=== PATIENT | female | born 1995 | race Caucasian/White ===

== ENCOUNTER 2017-07-19 10:33 | Emergency (ER) | payer BC ==
[2017-07-19 13:14] VITALS: BP 122/69
--- NOTE | 2017-07-19 13:26 | UC ---
Throat Pain/Nasal Rigoberto HPI - HPI Summary HPI Summary: Pt presents accompanied by mother with complaints of swollen tonsils, pain in her throat, and difficulty eating due to swelling. Her symptoms started 2 days ago and have rapidly progressed. Yesterday she tells me that she had a fever of 103F, took ibuprofen and fever was well controlled. She is breathing without difficulty currently. Denies chest pain, abdominal pain, n/v/d/c. - History of Current Complaint Chief Complaint: UCRespiratory Stated Complaint: FEVER, DRAINNING TONSILS Time Seen by Provider: 07/19/17 13:16 Hx Obtained From: Patient Hx Last Menstrual Period: iud Onset/Duration: Sudden Onset Severity: Severe Pain Intensity: 8 Pain Scale Used: 0-10 Numeric - Allergies/Home Medications Allergies/Adverse Reactions: Allergies Allergy/AdvReac Type Severity Reaction Status Date / Time Penicillins [PCN] Allergy Intermediate Nausea And Verified 07/19/17 13:14 Vomiting Prochlorperazine Allergy Altered Verified 07/19/17 13:14 [From Compazine] Mental Status Home Medications: Home Medications Ferrous Sulfate [Iron Slow Release] 143 mg PO 07/19/17 [History] Montelukast Sodium TAB* [Singulair TAB*] 10 mg PO DAILY 07/19/17 [History Confirmed 07/19/17] Omeprazole 40 mg PO 07/19/17 [History] Sertraline HCl [Zoloft] 50 mg PO 07/19/17 [History] PMH/Surg Hx/FS Hx/Imm Hx Previously Healthy: Yes Respiratory History: Asthma GI/ History: Gastroesophageal Reflux - Surgical History Surgical History: Yes Surgery Procedure, Year, and Place: bilat faciotomy to legs - Social History Occupation: Student Lives: Dormitory/Roommates Alcohol Use: Occasionally Substance Use Type: None Smoking Status (MU): Never Smoked Tobacco Review of Systems Constitutional: Fever Skin: Negative Eyes: Negative ENT: Sore Throat, Other - Swollen tonsils Respiratory: Negative Cardiovascular: Negative Gastrointestinal: Negative Psychological: Negative All Other Systems Reviewed And Are Negative: Yes Physical Exam Triage Information Reviewed: Yes Appearance: Well-Appearing, No Pain Distress, Well-Nourished Vital Signs: Initial Vital Signs Temp 99.0 F 07/19/17 13:09 Pulse 91 07/19/17 13:09 Resp 18 01/28/18 13:09 BP 122/69 07/19/17 13:09 Pulse Ox 100 07/19/17 13:09 Vital Signs Reviewed: Yes Eyes: Positive: Conjunctiva Clear. Negative: Conjunctiva Inflamed, Discharge ENT: Positive: Pharyngeal erythema, TMs normal, Tonsillar swelling - 3+, Tonsillar exudate, Other - Uvula deviated to the left from right tonsil. Negative: Nasal congestion, Nasal drainage, TM bulging, TM dull, TM red, Hoarse voice, Sinus tenderness Neck: Positive: Supple, Other: - TTP right tonsillar with ~1.0cm fluctuant abscess. Respiratory: Positive: Chest non-tender, Lungs clear, Normal breath sounds, No respiratory distress, No accessory muscle use Cardiovascular: Positive: RRR, No Murmur, Pulses Normal Neurological: Positive: Alert Psychological: Positive: Age Appropriate Behavior Skin: Negative: rashes, significant lesion(s) Throat Pain/Nasal Course/Dx - Course Course Of Treatment: 4mg Dexamethasone given in clinic today. Advised to seek further evaluation in the ED for potential IV antibiotics and ENT drainage. Mom will drive her by private car. - Differential Dx/Diagnosis Provider Diagnoses: Peritonsillar abscess right Discharge - Discharge Plan Condition: Stable Disposition: HOME Patient Education Materials: Peritonsillar Abscess (DC) Referrals: Mary Bajwa MD [Primary Care Provider] - Additional Instructions: Please go directly to the [facility] Emergency Room for further evaluation and treatment of your peritonsillar abscess. You were given 4mg of Dexamethasone (steroid) at your visit today.
[2017-07-19] MEDS ORDERED: Dexamethasone TAB* 4 MG PO ONE (14:00)
== END 2017-07-19 14:20 | disposition home or self-care (01) ==
LOC: UCEAST 10:33
DX: J36 Peritonsillar abscess (principal); Z88.0 Allergy status to penicillin; J45.909 Unspecified asthma, uncomplicated; K21.9 Gastro-esophageal reflux disease without esophagitis
CPT/HCPCS: 87651; 99212; G0463; J8540

== ENCOUNTER 2017-07-19 14:42 | Emergency (ER) | payer BC ==
[2017-07-19] MEDS ORDERED: Clindamycin 600 MG IVPREMIX(* 600 MG/50 ML SDV IV ONE (16:27)
[2017-07-19] MEDS ORDERED: D5NS 0.9% 1000 ML BAG* 1,000 ML IV.FLUID IV ONE (16:27)
[2017-07-19] MEDS ORDERED: Dexamethasone IV* 4 MG/ML 1 ML (4 MG) IV SLOW PU ONE (16:27)
--- NOTE | 2017-07-19 16:39 | ED ---
Throat Pain/Nasal Congestion - HPI Summary HPI Summary: Patient presents to the ED with mother from urgent care. Patient states she was seen here for a peritonsillar abscess. She has been having discomfort in the bilateral tonsils for 2 days. Strep did obtain an negative at urgent care. She was given 4 mg dexamethasone. She denies any sick contacts or history of strep throat. She has a history of tonsil stones and has had that recently. She returned from a trip to [facility] 2 days ago and began to feel ill at that time. She denies any fevers, sweats, chills. Pain is discretely located over bilateral cervical lymph nodes and posterior pharynx. Moderate amount of swelling to the right cervical lymph node, mild amount of swelling to the left cervical lymph node. She was eating and drinking okay although endorses odynophagia. Denies dysphagia. Denies any breathing difficulties or airway compromise. Denies any shortness of breath, or chest pain. Denies any recent illness or bacterial infection. She denies any hoarseness or drooling. She is tolerating secretions well. Speaking okay. She is opening and closing her mouth without difficulty - History of Current Complaint Chief Complaint: EDThroatPain Time Seen by Provider: 07/19/17 15:35 Hx Obtained From: Patient Onset/Duration: Gradual Onset Severity: Moderate Associated Signs And Symptoms: Positive: Dysphagia. Negative: Drooling, Wheezing, Hoarseness - Epiglottits Risk Factors Epiglottis Risk Factors: Negative - Allergies/Home Medications Allergies/Adverse Reactions: Allergies Allergy/AdvReac Type Severity Reaction Status Date / Time Penicillins [PCN] Allergy Intermediate Nausea And Verified 07/19/17 13:14 Vomiting Prochlorperazine Allergy Altered Verified 07/19/17 13:14 [From Compazine] Mental Status PMH/Surg Hx/FS Hx/Imm Hx Previously Healthy: Yes - Surgical History Surgery Procedure, Year, and Place: bilat faciotomy to legs - Immunization History Date of Influenza Vaccine: 04/2017 Immunizations Up to Date: Yes Infectious Disease History: No Infectious Disease History: Denies: Traveled Outside the [place] in Last 30 Days - Social History Occupation: Unemployed Lives: With Family Alcohol Use: Occasionally Hx Substance Use: No Substance Use Type: Reports: None Hx Tobacco Use: No Smoking Status (MU): Never Smoked Tobacco Review of Systems Constitutional: Negative Negative: Fever, Chills, Fatigue Eyes: Negative Positive: Sore Throat - tonsillar swelling Cardiovascular: Negative Respiratory: Negative Genitourinary: Negative Positive: no symptoms reported, see HPI Neurological: Negative Psychological: Normal All Other Systems Reviewed And Are Negative: Yes Physical Exam Triage Information Reviewed: Yes Vital Signs On Initial Exam: Initial Vitals Temp Pulse Resp BP Pulse Ox 99.3 F 100 16 115/57 98 07/19/17 14:55 07/19/17 14:55 07/19/17 14:55 07/19/17 14:55 07/19/17 14:55 Vital Signs Reviewed: Yes Appearance: Positive: Well-Appearing, Well-Nourished Skin: Positive: Warm, Skin Color Reflects Adequate Perfusion Head/Face: Positive: Normal Head/Face Inspection Eyes: Positive: EOMI, TESHA, Conjunctiva Clear ENT: Positive: Hearing grossly normal, Pharyngeal erythema, TMs normal, Tonsillar swelling, Tonsillar exudate, Uvula midline. Negative: Pharynx normal , Nasal congestion, Nasal drainage, Trismus, Muffled voice, Hoarse voice, Dental tenderness, Sinus tenderness Musculoskeletal: Positive: Normal, Strength/ROM Intact Neurological: Positive: Speech Normal Psychiatric: Positive: Affect/Mood Appropriate Diagnostics - Vital Signs Vital Signs Temp Pulse Resp BP Pulse Ox 07/19/17 16:06 99.3 F 109 22 120/64 99 07/19/17 14:55 99.3 F 100 16 115/57 98 - Laboratory Result Diagrams: 07/19/17 16:47 07/19/17 16:47 Lab Statement: Any lab studies that have been ordered have been reviewed, and results considered in the medical decision making process. EENT Course/Dx - Course Course Of Treatment: During the course of treatment, the patient is evaluated for bilateral tonsillar swelling with exudate and cervical lymphadenopathy. She was sent here to rule out a peritonsillar abscess. The tonsillitis is bilateral with exudate and uvula is midline. Peritonsillar abscess not seen. Discussed bacterial infection likely due to a tonsillolith. Patient will be given clindamycin IV 600, Decadron 8 mg in D5 normal saline. Patient is encouraged Chloraseptic spray and Cepacol tabs for discomfort. She is encouraged Tylenol 650 mg 3 times daily and ibuprofen 600 mg 3 times daily intermittently for pain. She is given follow-up with Dr. Granados. She is given prednisone and clindamycin for tonsillitis with infection most likely from a tonsillolith. She voices no concerns at this time and is okay for discharge. - Differential Diagnoses Differential Diagnoses: Other - Tonsillitis, peritonsillar abscess, tonsillolith - Diagnoses Provider Diagnoses: Tonsillitis Discharge - Discharge Plan Condition: Stable Disposition: HOME Prescriptions: Clindamycin Cap(NF) [Clindamycin Cap 300 mg Cap(NF)] 300 mg PO Q6H #28 cap predniSONE TAB* [Deltasone TAB*] 50 mg PO DAILY #5 tab MDD 1 Patient Education Materials: Tonsillitis (ED) Referrals: Mary Bajwa MD [Primary Care Provider] - Julius Granados MD [Medical Doctor] - Additional Instructions: Prednisone once daily in the morning 5 days Clindamycin 4 times daily 7 days I have given you a referral to ENT If you develop fever, sweats, chills despite the Tylenol 650 mg 3 times daily, return to the ED He should begin to feel better by tomorrow afternoon Complete the antibiotics even if he began to feel better I believe you have a tonsillitis with infection, which should clear up with antibiotics This does not appear to need drainage at this time However, if the tonsils become more enlarged, you develop any difficulty swallowing or breathing return to the ED immediately
[2017-07-19 16:54] LABS: ABS Basophils 0 10^3/ul (0-0.2); ABS Eosinophils 0 10^3/ul (0-0.6); ABS Lymphocytes 0.7 10^3/ul (1.0-4.8); ABS Monocytes 0.4 10^3/ul (0-0.8); ABS Neutrophils 9.1 10^3/ul (1.5-7.7); ABS Nucleated RBC 0 10^3/ul; Eosinophil % 0.1 % (0-6); Hematocrit 34 % (35-47); Hemoglobin 11.4 g/dl (12.0-16.0); Mean Corpuscular HGB Conc 34 g/dl (31-36); Mean Corpuscular Hemoglobin 28 pg (27-31); Mean Corpuscular Volume 84 fL (80-97); Mean Platelet Volume 8 um3 (7.4-10.4); Nucleated Red Blood Cells % 0; Platelet Count 229 10^3/ul (150-450); Red Blood Count 4.05 10^6/ul (4.0-5.4); Red Cell Distribution Width 14 % (10.5-15); White Blood Count 10.3 10^3/ul (3.5-10.8)
[2017-07-19 17:11] LABS: EGFR Non-African American 122.6 (>60)
[2017-07-19 18:44] VITALS: BP 113/60
--- NOTE | 2017-07-22 08:50 | PN ---
Progress Note - Progress Note Date of Service: 07/19/17 Note: throat culture results show 2+ normal lori and no other growth no further action required at this time
== END 2017-07-19 18:42 | disposition home or self-care (01) ==
LOC: ED 14:42
DX: J03.90 Acute tonsillitis, unspecified (principal); Z88.0 Allergy status to penicillin
CPT/HCPCS: 36415; 80053; 83605; 83690; 85025; 86140; 86308; 86664; 86665; 87070; 87077; 96374; 96375; 99282; J1100

== ENCOUNTER 2018-06-25 17:24 | Emergency (ER) | payer BC ==
[2018-06-25 17:47] VITALS: BP 125/85
--- NOTE | 2018-06-25 18:01 | UC ---
Throat Pain/Nasal Rigoberto HPI - HPI Summary HPI Summary: 22-year-old woman comes in with a chief complaint of sore throat sinus pressure. She's had upper respiratory tract infection symptoms for 2 weeks now. The fever initially. Rhinorrhea has gone to brown. She's got pain in the right maxillary sinus area. Also got a headache. It hurts when she swallows it's less painful when she doesn't swallow. Ibuprofen helps with the pain also but then the pain comes back with the ibuprofen wears off. No difficulty swallowing she is able to eat and drink. No complaint of any ear pain. - History of Current Complaint Chief Complaint: UCRespiratory Stated Complaint: SORE THROAT Time Seen by Provider: 06/25/18 17:48 Hx Last Menstrual Period: 2 weeks ago, IUD Pain Intensity: 2 - Allergies/Home Medications Allergies/Adverse Reactions: Allergies Allergy/AdvReac Type Severity Reaction Status Date / Time Penicillins Allergy Nausea And Verified 06/25/18 17:48 Vomiting prochlorperazine Allergy Altered Verified 06/25/18 17:48 Mental Status Thera-Flu Allergy Nausea And Uncoded 06/25/18 17:51 Vomiting Home Medications: Home Medications Acetaminophen [Tylenol] 650 mg PO Q6HR PRN 06/25/18 [History Confirmed 06/25/18] Cetirizine* [ZyrTEC 10 MG TAB*] 10 mg PO DAILY 06/25/18 [History Confirmed 06/25] Levonorgestrel (Iud) [Kyleena IUD] 17.5 mcg IU DAILY 06/25/18 [History Confirmed 06/25/18] PMH/Surg Hx/FS Hx/Imm Hx Previously Healthy: Yes - Surgical History Surgical History: Yes Surgery Procedure, Year, and Place: bilat faciotomy to legs - Family History Known Family History: Positive: Non-Contributory - Social History Alcohol Use: Weekly Substance Use Type: None Smoking Status (MU): Never Smoked Tobacco Review of Systems All Other Systems Reviewed And Are Negative: Yes Constitutional: Positive: Fever Skin: Positive: Negative Eyes: Positive: Negative ENT: Positive: Sore Throat, Nasal Discharge, Sinus Congestion, Sinus Pain/ Tenderness Respiratory: Positive: Negative Cardiovascular: Positive: Negative Gastrointestinal: Positive: Negative Motor: Positive: Negative Neurovascular: Positive: Negative Musculoskeletal: Positive: Negative Neurological: Positive: Headache Psychological: Positive: Negative Is Patient Immunocompromised?: No Physical Exam Triage Information Reviewed: Yes Appearance: No Pain Distress, Well-Nourished, Ill-Appearing - MILD Vital Signs: Initial Vital Signs Temp 98.6 F 06/25/18 17:45 Pulse 93 06/25/18 17:45 Resp 18 06/25/18 17:45 BP 125/85 06/25/18 17:45 Pulse Ox 99 06/25/18 17:45 Vital Signs Reviewed: Yes Eye Exam: Normal Eyes: Positive: Conjunctiva Clear ENT: Positive: Pharyngeal erythema, Nasal congestion, Nasal drainage, TMs normal Neck exam: Normal Neck: Positive: Supple Respiratory: Positive: Lungs clear, Normal breath sounds, No respiratory distress Cardiovascular: Positive: RRR Musculoskeletal Exam: Normal Musculoskeletal: Positive: Strength Intact, ROM Intact Neurological Exam: Normal Neurological: Positive: Alert, Muscle Tone Normal Psychological Exam: Normal Psychological: Positive: Age Appropriate Behavior Skin Exam: Normal Throat Pain/Nasal Course/Dx - Course Course Of Treatment: URI SX X 2 WEEKS - Differential Dx/Diagnosis Provider Diagnosis: Sinusitis Discharge - Sign-Out/Discharge Documenting (check all that apply): Patient Departure All imaging exams completed and their final reports reviewed: No Studies - Discharge Plan Condition: Stable Disposition: HOME Prescriptions: DOXYcycline CAP(*) [DOXYcycline 100MG CAP(*)] 100 mg PO BID #20 cap Patient Education Materials: Sinusitis (ED) Referrals: Mary Bajwa MD [Primary Care Provider] - Additional Instructions: FOLLOW UP WITH YOUR DOCTOR IF NOT COMPLETELY IMPROVED. GET RECHECKED FOR ANY WORSENING OF YOUR CONDITION OR QUESTIONS OR CONCERNS. - Billing Disposition and Condition Condition: STABLE Disposition: Home
== END 2018-06-25 18:10 | disposition home or self-care (01) ==
LOC: UCEAST 17:24
DX: J32.9 Chronic sinusitis, unspecified (principal); Z88.0 Allergy status to penicillin; Z88.8 Allergy status to other drugs, medicaments and biological substances
CPT/HCPCS: 87651; 99212; G0463

== ENCOUNTER 2018-07-27 18:30 | Emergency (ER) | payer BC ==
[2018-07-27 18:46] VITALS: BP 122/80
[2018-07-27 19:15] LABS: Influenza A Molecular POSITIVE (Negative)
--- NOTE | 2018-07-27 19:52 | UC ---
FLU HPI - HPI Summary HPI Summary: 23-year-old female presents with 3 day history of fever, chills, fatigue, general malaise, body aches, nasal congestion, sore throat, and nonproductive cough. 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 Denies ear pain, dysphagia, chest pain, shortness of breath, abdominal pain, nausea, vomiting, or diarrhea. - History of Current Complaint Chief Complaint: UCGeneralIllness Stated Complaint: FLU LIKE SYM Time Seen by Provider: 07/27/18 19:38 Hx Obtained From: Patient Hx Last Menstrual Period: 07/11/18 Pain Intensity: 3 - Allergy/Home Medications Allergies/Adverse Reactions: Allergies Allergy/AdvReac Type Severity Reaction Status Date / Time Penicillins Allergy Nausea And Verified 07/27/18 18:46 Vomiting prochlorperazine Allergy Altered Verified 07/27/18 18:46 Mental Status Thera-Flu Allergy Nausea And Uncoded 07/27/18 18:46 Vomiting PMH/Surg Hx/FS Hx/Imm Hx Previously Healthy: Yes GI/ History: Gastroesophageal Reflux - Surgical History Surgical History: Yes Surgery Procedure, Year, and Place: bilat faciotomy to legs - Family History Known Family History: Positive: Non-Contributory - Social History Occupation: Student Lives: With Family Alcohol Use: Weekly Substance Use Type: None Smoking Status (MU): Never Smoked Tobacco Review of Systems All Other Systems Reviewed And Are Negative: Yes Constitutional: Positive: Fever, Chills, Fatigue Skin: Negative: Rash Eyes: Negative: Drainage, Eye Redness ENT: Positive: Sore Throat, Nasal Discharge, Sinus Congestion. Negative: Ear Ache, Sinus Pain/Tenderness Respiratory: Positive: Cough. Negative: Shortness Of Breath Cardiovascular: Negative: Palpitations, Chest Pain Gastrointestinal: Negative: Abdominal Pain, Vomiting, Diarrhea, Nausea Genitourinary: Positive: Negative Musculoskeletal: Positive: Myalgia Neurological: Positive: Negative Physical Exam - Summary Physical Exam Summary: GENERAL APPEARANCE: Well developed, well nourished, alert and cooperative, and appears to be in no acute distress. EYES: Conjunctiva clear. No discharge. Vision is grossly intact. EARS: External auditory canals and tympanic membranes clear, hearing grossly intact. NOSE: Mild-moderate nasal congestion. Clear nasal discharge. THROAT: Mild pharyngeal erythema. No tonsilar inflammation, swelling, exudate, or lesions. NECK: Neck supple, non-tender without lymphadenopathy. CARDIAC: Normal S1 and S2. No S3, S4 or murmurs. Rhythm is regular. There is no peripheral edema, cyanosis or pallor. Extremities are warm and well perfused. Capillary refill is less than 2 seconds. LUNGS: Clear to auscultation without rales, rhonchi, wheezing or diminished breath sounds. ABDOMEN: Positive bowel sounds. Soft, nondistended, nontender. No guarding or rebound. No masses or hepatosplenomegally. MUSKULOSKELETAL: ROM intact to all extremities. No joint erythema or tenderness. Normal muscular development. Normal gait. SKIN: Skin normal color, texture and turgor with no lesions or eruptions. Triage Information Reviewed: Yes Vital Signs: Initial Vital Signs Temp 98.6 F 07/27/18 18:39 Pulse 77 07/27/18 18:39 Resp 20 07/27/18 18:39 BP 122/80 07/27/18 18:39 Pulse Ox 100 07/27/18 18:39 Vital Signs Reviewed: Yes Diagnostics - Laboratory Diagnostic Studies Completed/Ordered: Rapid flu positive influenza A. Flu Course/Dx - Course Course Of Treatment: 23-year-old female presents with 3 day history of fever, chills, fatigue, general malaise, body aches, nasal congestion, sore throat, and nonproductive cough. 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 Denies ear pain, dysphagia, chest pain, shortness of breath, abdominal pain, nausea, vomiting, or diarrhea. Afebrile. Vital signs stable. Exam reveals a young adult female in no acute distress with mild to moderate nasal congestion, mild pharyngeal erythema, clear breath sounds, dry nonproductive cough, and otherwise unremarkable exam. Rapid flu was positive for influenza A. She is outside the timeframe for starting Tamiflu. Recommending symptomatic treatment including Tessalon Perles for cough. Follow- up with her primary care provider in 7 days if symptoms do not improve. Anticipatory guidance and warning symptoms were reviewed with the patient. Verbalizes understanding and agrees with plan of care. - Differential Dx/Diagnosis Differential Diagnosis/HQI/PQRI: Bronchitis, Influenza, Pneumonia, Upper Respiratory Infection Provider Diagnosis: Influenza A Discharge - Sign-Out/Discharge Documenting (check all that apply): Patient Departure All imaging exams completed and their final reports reviewed: No Studies - Discharge Plan Condition: Stable Disposition: HOME Prescriptions: Benzonatate CAP* [Tessalon 100 MG CAP*] 100 mg PO TID PRN #30 cap PRN Reason: Cough Patient Education Materials: Influenza (ED) Referrals: Mary Bajwa MD [Primary Care Provider] - 7 Days (If no improvement in symptoms.) Additional Instructions: Your flu test in the clinic today was positive for influenza A. Get plenty of rest. Drink plenty of fluids to avoid dehydration especially if you are running any fever. Take over the counter acetaminophen (Tylenol) or ibuprofen (Advil, Motrin) according to directions as needed for pain or fever. Use an over the counter decongestant such as Sudafed for the congestion. Use Tessalon Perles 1 cap every 8 hours as needed for cough. Use salt water gargles several times a day if you have a sore throat. You may also use Chloraseptic spray or Cepacol lonzenges according to directions which contain a numbing medication and can provide some temporary relief from your sore throat. Follow up with your primary care provider in 7 days if symptoms persist. Seek immediate medical attention in the emergency room if you have fever greater than 100.5 F despite taking acetaminophen or ibuprofen, have chest pain , difficulty breathing, are unable to swallow, or have any worsening of symptoms. - Billing Disposition and Condition Condition: STABLE Disposition: Home
[2018-07-27] MEDS ORDERED: Benzonatate CAP* 100 MG PO ONE (19:55)
== END 2018-07-27 20:10 | disposition home or self-care (01) ==
LOC: UCEAST 18:30
DX: J10.1 Influenza due to other identified influenza virus with other respiratory manifestations (principal); Z88.0 Allergy status to penicillin; Z88.8 Allergy status to other drugs, medicaments and biological substances
CPT/HCPCS: 99202; A9270-GY; G0463

== ENCOUNTER 2019-06-22 17:25 | Emergency (ER) | payer BC ==
[2019-06-22] MEDS ORDERED: Ketorolac INJ* 30 MG/ML 1 ML VIAL IV PUSH ONE (18:04)
[2019-06-22] MEDS ORDERED: diPHENhydraMINE IV* 50 MG/ML 1 ml VIAL (BENADRYL) SLOW PUSH ONE (18:04)
[2019-06-22] MEDS ORDERED: Ondansetron INJ* 2 MG/ML VIAL IV ONE (18:04)
[2019-06-22] MEDS ORDERED: NS 0.9% 1000 ML** 1,000 ML IV ONE (18:05)
--- NOTE | 2019-06-22 18:09 | ED ---
Headache - HPI Summary HPI Summary: 23-year-old female presents with headache today. States that started 3 hours ago. She has pain location on the right side of her face behind her eye. She admits to pressure behind the eye. She admits to photophobia and phonophobia. She admits to nausea vomiting. She states after she vomited the pain improved. She does have a strong family history of migraines. She has never had a migraine before. No recent illness. No sinus congestion. No neck pain. Has a history of IBS and asthma. - History Of Current Complaint Chief Complaint: EDHeadache Stated Complaint: HEADACHE/NAUSEA PER FATHER Time Seen by Provider: 06/22/19 17:59 Hx Last Menstrual Period: 07/11/18 - Allergies/Home Medications Allergies/Adverse Reactions: Allergies Allergy/AdvReac Type Severity Reaction Status Date / Time Penicillins Allergy Nausea And Verified 06/22/19 17:30 Vomiting prochlorperazine Allergy Altered Verified 06/22/19 17:30 Mental Status Thera-Flu Allergy Nausea And Uncoded 07/27/18 18:46 Vomiting PMH/Surg Hx/FS Hx/Imm Hx Endocrine/Hematology History: Denies: Hx Diabetes, Hx Thyroid Disease Cardiovascular History: Denies: Hx Hypertension Respiratory History: Reports: Hx Asthma Denies: Hx Chronic Obstructive Pulmonary Disease (COPD) GI History: Denies: Hx Ulcer - Surgical History Surgery Procedure, Year, and Place: bilat faciotomy to legs - Immunization History Date of Influenza Vaccine: 04/2017 Infectious Disease History: No Infectious Disease History: Denies: Hx Hepatitis, Hx Human Immunodeficiency Virus (HIV), Traveled Outside the [place] in Last 30 Days - Family History Known Family History: Positive: Non-Contributory - Social History Alcohol Use: Weekly Hx Substance Use: No Substance Use Type: Reports: None Hx Tobacco Use: No Smoking Status (MU): Never Smoked Tobacco Review of Systems Negative: Fever Negative: Chest Pain Negative: Shortness Of Breath Positive: Vomiting, Nausea Positive: Headache All Other Systems Reviewed And Are Negative: Yes Physical Exam Triage Information Reviewed: Yes Vital Signs On Initial Exam: Initial Vitals Temp Pulse Resp BP Pulse Ox 96.5 F 94 16 139/82 100 06/22/19 17:27 06/22/19 17:27 06/22/19 17:27 06/22/19 17:27 06/22/19 17:27 Vital Signs Reviewed: Yes Appearance: Positive: Well-Appearing Skin: Positive: Warm, Dry Head/Face: Positive: Normal Head/Face Inspection Eyes: Positive: Normal, EOMI, TESHA, Conjunctiva Clear ENT: Positive: Normal ENT inspection, Pharynx normal, TMs normal Respiratory/Lung Sounds: Positive: Clear to Auscultation, Breath Sounds Present Cardiovascular: Positive: Normal, RRR Abdomen Description: Positive: Nontender, Soft Bowel Sounds: Positive: Present Musculoskeletal: Positive: Normal Neurological: Positive: Sensory/Motor Intact, Alert, Oriented to Person Place, Time, CN Intact II-III Psychiatric: Positive: Normal - [place] Coma Scale Best Eye Response: 4 - Spontaneous Best Motor Response: 6 - Obeys Commands Best Verbal Response: 5 - Oriented Coma Scale Total: 15 Procedures - Sedation Patient Received Moderate/Deep Sedation with Procedure: No Diagnostics - Vital Signs Vital Signs Temp Pulse Resp BP Pulse Ox 06/22/19 17:55 87 100 06/22/19 17:52 95 133/89 100 06/22/19 17:27 96.5 F 94 16 139/82 100 - Laboratory Result Diagrams: 06/22/19 18:12 06/22/19 18:12 Lab Statement: Any lab studies that have been ordered have been reviewed, and results considered in the medical decision making process. - CT brain CT Interpretation Completed By: Radiologist Summary of CT Findings: IMPRESSION: No acute intracranial pathology. Re-Evaluation - Re-Evaluation First Eval Re-Evaluation Time: 19:21 Comment: headache improved, but still present Second Eval Re-Evaluation Time: 20:21 Change: Improved Comment: feels ready to go home Headache Course/Dx - Course Course Of Treatment: 23-year-old female presents with headache today. States that started 3 hours ago. She has pain location on the right side of her face behind her eye. She admits to pressure behind the eye. She admits to photophobia and phonophobia. She admits to nausea vomiting. She states after she vomited the pain improved. She does have a strong family history of migraines. She has never had a migraine before. No recent illness. No sinus congestion. No neck pain. Has a history of IBS and asthma. On exam was normal neuro exam. with suddne onset of new headache will get a CT. CT normal. CT at this point is highly sensitive as less than 6 hours since onset. Gave migraine cocktail and improved. gave mg in addition. gave referral to neurology. patient understand and agrees with plan. - Diagnoses Differential Diagnosis/HQI/PQRI: Migraine, Tension Headache, Viral Syndrome Provider Diagnoses: Headache Discharge ED - Sign-Out/Discharge Documenting (check all that apply): Patient Departure - Discharge Plan Condition: Good Disposition: HOME Patient Education Materials: Migraine Headache (ED) Referrals: Aelx Al MD [Medical Doctor] - Mary Bajwa MD [Primary Care Provider] - Additional Instructions: Take Tylenol or ibuprofen for pain every 6 hours can use excedrin when migraine starts Follow up with primary within 5 days a referral was given to neurology Return to ED if develop any new or worsening symptoms - Billing Disposition and Condition Condition: GOOD Disposition: Home
[2019-06-22 18:27] LABS: ABS Basophils 0.1 10^3/ul (0-0.2); ABS Eosinophils 0.1 10^3/ul (0-0.6); ABS Lymphocytes 1.6 10^3/ul (1.0-4.8); ABS Monocytes 0.5 10^3/ul (0-0.8); ABS Neutrophils 12.2 10^3/ul (1.5-7.7); Eosinophil % 0.5 %; Hematocrit 37 % (35-47); Lymphocyte % 11.2 %; Mean Corpuscular HGB Conc 33 g/dL (31-36); Mean Corpuscular Hemoglobin 28 pg (27-31); Mean Corpuscular Volume 85 fL (80-97); Mean Platelet Volume 7.6 fL (7.4-10.4); Platelet Count 327 10^3/uL (150-450); Red Cell Distribution Width 13 % (10-15); White Blood Count 14.5 10^3/uL (3.5-10.8)
[2019-06-22 18:41] LABS: ALT 20 U/L (7-52); AST 21 U/L (13-39); Albumin 4.5 g/dL (3.2-5.2); Albumin/Globulin Ratio 1.7 (1-3); Alkaline Phosphatase 74 U/L (34-104); Anion Gap 8 mmol/L (2-11); BUN/Creatinine Ratio 15.9 (8-20); Blood Urea Nitrogen 10 mg/dL (6-24); C Reactive Protein 8.03 mg/L (<8.01); CO2 Carbon Dioxide 25 mmol/L (22-32); Calcium 9.2 mg/dL (8.6-10.3); Chloride 101 mmol/L (101-111); EGFR African American 140.5 (>60); EGFR Non-African American 116.1 (>60); Globulin 2.7 g/dL (2-4); Glucose 119 mg/dL (70-100); Magnesium 1.7 mg/dL (1.9-2.7); Potassium 3.8 mmol/L (3.5-5.0); Sodium 134 mmol/L (135-145); Total Protein 7.2 g/dL (6.4-8.9)
[2019-06-22 18:57] LABS: HCG Pregnancy < 0.60 mIU/mL
[2019-06-22] MEDS ORDERED: Magnesium Sulfate 2 GM IV* 2 GM/50 ML BAG IVPB ONE (19:20)
[2019-06-22 20:50] VITALS: BP 117/69
== END 2019-06-22 20:50 | disposition home or self-care (01) ==
LOC: ED 17:25
DX: R51 Headache (principal); J45.909 Unspecified asthma, uncomplicated; R11.2 Nausea with vomiting, unspecified; Z88.0 Allergy status to penicillin; Z79.899 Other long term (current) drug therapy
CPT/HCPCS: 36415; 70450; 80053; 83735; 84702; 85025; 86140; 96361; 96374; 96375; 99284; J1200; J1885; J2405; J3475